=== PATIENT | female | born 1980 | race African-American/Black ===

== ENCOUNTER 2017-04-27 14:40 | Emergency (ER) | payer OTHER ==
[~2017-04-27] VITALS: Ht 154.9 cm; Wt 56.8 kg
[2017-04-27] MEDS ORDERED: MULT1TAB10 PO (15:02)
[2017-04-27] MEDS ORDERED: TOPR25TA PO (15:02)
[2017-04-27] MEDS ORDERED: [UNRECOGNIZED DRUG - OTHER] PO (15:02)
[2017-04-27] MEDS ORDERED: PROAAER10 INH (15:02)
[2017-04-27] MEDS ORDERED: CO Q30CA4 PO (15:02)
[2017-04-27] MEDS ORDERED: VITA100066 PO (15:02)
[2017-04-27] MEDS ORDERED: SPIR25TA2 PO (15:02)
--- NOTE | 2017-04-27 17:49 | ED PDOC ---
Post-Departure Follow-Up MADE AWARE BY NURSING STAFF THAT PT WAS MOVED TO AN EXAM ROOM IN [facility] [place] AND BEGAN COMPLAINING OF RIGHT SIDED BACK PAIN. UPON RECHECKING ON PT, PT SITTING ON SIDE OF BED CLUTCHING HER CHEST STATING SHE BEGAN WITH RIGHT SIDED BACK PAIN AND NOW IT IS THROUGH TO HER RIGHT CHEST, CAUSING WORSE PAIN WITH INSPIRATION. PT ABLE TO TAKE A DEEP BREATH IN EXAM ROOM, PT TEARFUL. VITO PORTER PA-C Apr 27, 2017 17:49
[2017-04-27] MEDS ORDERED: KETOROLAC 30 MG/ML VIAL (J1885) IV ONE (18:00)
[2017-04-27 18:06] LABS: BASO # 0.2 K/mm3 (0.0-0.2); BASO % 1.8 % (0.0-1.0); EOS # 0.2 K/mm3 (0.0-0.50); EOS % 2.4 % (0.0-3.0); LARGE UNSTAINED CELL # 0.2 K/mm3 (0.0-0.4); LARGE UNSTAINED CELL % 1.9 % (0.0-4.0); LYMPH # 2.7 K/mm3 (1.5-4.5); LYMPH % 31.1 % (24.0-44.0); MEAN CORPUSCULAR HEMOGLOBIN 30.9 pg (27.0-33.0); MEAN CORPUSCULAR HGB CONC 33.1 g/dl (32.0-36.5); MEAN CORPUSCULAR VOLUME 93.2 fl (80.0-96.0); MONO # 0.3 K/mm3 (0.0-0.8); MONO % 3.6 % (0.0-5.0); NEUTROPHILS # 4.8 K/mm3 (1.8-7.7); NEUTROPHILS % 59.2 % (36.0-66.0); PLATELET COUNT, AUTOMATED 363 k/mm3 (150-450); RED CELL DISTRIBUTION WIDTH 13.9 % (11.5-14.5); WHITE BLOOD COUNT 8.2 K/mm3 (4.0-10.0)
[2017-04-27 18:30] LABS: ALBUMIN 4.1 GM/DL (3.2-5.2); ALBUMIN/GLOBULIN RATIO 0.87 (1.00-1.93); ALKALINE PHOSPHATASE 62 U/L (45-117); ALT/SGPT 20 U/L (12-78); ANION GAP 8 MEQ/L (8-16); AST/SGOT 21 U/L (15-37); BILIRUBIN,TOTAL 0.8 MG/DL (0.2-1.0); BLOOD UREA NITROGEN 9 MG/DL (7-18); CARBON DIOXIDE LEVEL 24 MEQ/L (21-32); CHLORIDE LEVEL 105 MEQ/L (98-107); CREATININE FOR GFR 0.87 MG/DL (0.55-1.02); GLOMERULAR FILTRATION RATE > 60.0 (>60); GLUCOSE, FASTING 92 MG/DL (70-105); POTASSIUM SERUM 4.5 MEQ/L (3.5-5.1); SODIUM LEVEL 137 MEQ/L (136-145); TOTAL PROTEIN 8.8 GM/DL (6.4-8.2)
[2017-04-27 20:19] LABS: HCG, SERUM QUANTITATIVE < 1.0 MIU/ML
[2017-04-27 21:03] LABS: MICROSCOPIC INDICATED? MAN NO (NO)
[2017-04-27] MEDS ORDERED: NAPR500T PO (21:27)
[2017-04-27 21:36] VITALS: BP 150/81
--- NOTE | 2017-04-28 01:17 | REP ---
Clinical: Right-sided chest pain . Comparison: None . Technique: PA and lateral. Findings: The mediastinum and cardiac silhouette are normal. The lung lewis are clear and without acute consolidation, effusion, or pneumothorax. The skeletal structures are intact and normal. Impression: 1. No acute cardiopulmonary process. Signed by Alek Morin MD 04/28/2017 01:09 A
== END 2017-04-27 21:41 | disposition home or self-care (01) ==
LOC: M ED 14:40
DX: R10.2 Pelvic and perineal pain (principal); R07.9 Chest pain, unspecified; J45.909 Unspecified asthma, uncomplicated; I47.1 Supraventricular tachycardia; Z79.899 Other long term (current) drug therapy; Z88.1 Allergy status to other antibiotic agents; Z88.2 Allergy status to sulfonamides; Z88.5 Allergy status to narcotic agent; Z88.8 Allergy status to other drugs, medicaments and biological substances; Z91.040 Latex allergy status; Z91.041 Radiographic dye allergy status
CPT/HCPCS: 71020; 80053; 81002; 84702; 85025; 85379; 87086; 87210; 87491; 87591; 96374; 99283; J1885